=== PATIENT | male | born 1960 | race African-American/Black ===

== ENCOUNTER 2022-11-08 21:32 | Emergency (ER) | payer MEDICAID, OTHER ==
[~2022-11-08] VITALS: Ht 177.8 cm; Wt 72.6 kg
--- NOTE | 2022-11-08 21:40 | NUR ---
[id number] FOR [facility] TRIP AND FALL. +ETOH +HT UNKNOWN KO UNWITNESSED. PATIENT IN BED 13 ON MONITOR AND POX, AWAITING MD MC. PATIENT DENIES ANY DISCOMFORT OR SOB.
--- NOTE | 2022-11-08 22:41 | NUR ---
PATIENT REFUSING TO DO CT CERVICAL SPINE WO CONTRAST. EXPLAINED THE SEVERITY AND IMPORTANCE OF GETTING THIS PROCEDURE, PATIENT STILL REFUSES TO MOVE FOWARD. MADE AWARE.
--- NOTE | 2022-11-08 23:29 | NUR ---
AWAITING FOR FAMILY TO PICKUP PT FOR DC. ETA 1 HR.
--- NOTE | 2022-11-09 00:58 | NUR ---
Patient discharged to home in stable condition. Written and verbal after care instructions given. Patient verbalizes understanding of instruction. PT ambulatory with a steady gait
--- NOTE | 2022-11-09 00:59 | NUR ---
PT WAS PICKED UP BY HIS SON
[2022-11-09 01:57] VITALS: BP 139/87
== END 2022-11-09 01:57 | disposition home or self-care (01) ==
LOC: ER 21:35
DX: S09.8XXA Other specified injuries of head, initial encounter (principal); F10.129 Alcohol abuse with intoxication, unspecified; W19.XXXA Unspecified fall, initial encounter; Y90.9 Presence of alcohol in blood, level not specified; Y93.89 Activity, other specified; Y92.89 Other specified places as the place of occurrence of the external cause; Y99.8 Other external cause status
CPT/HCPCS: 70450-TC

== ENCOUNTER 2022-11-09 08:53 | Emergency (ER) | payer MEDICAID ==
[~2022-11-09] VITALS: Ht 180.3 cm; Wt 88.5 kg
--- NOTE | 2022-11-09 09:02 | NUR ---
[address] PT STATES "EVERYONE IS OUT TO GET ME" DENIES SI/HI. DENIES DRUG USE OR ALCOHOL CONSUMPTION. PT IS ALERT AND ORIENTED TO NAME AND PLACE. BREATHING EVEN AND UNLABORED. AWAITING MD ORDERS.
--- NOTE | 2022-11-09 09:26 | NUR ---
URINE COLLECTED AND SENT TO LAB.
[2022-11-09] MEDS ORDERED: LORAZEPAM INJ 2 MG/ML VIAL ONE ×3 (09:51→16:12)
[2022-11-09] MEDS ORDERED: IV NS 0.9% 1,000 ML BAG IV ONE (10:00)
[2022-11-09] MEDS ORDERED: LORAZEPAM INJ 2 MG/ML VIAL IV ONE ×3 (10:00→15:30)
--- NOTE | 2022-11-09 10:03 | NUR ---
ESTABLISHED IV ACCESS 18G RIGHT AC. BLOOD DRAWN AND SENT TO LAB. NS FLUIDS RUNNING.
--- NOTE | 2022-11-09 10:09 | NUR ---
VERONIKA IS [facility] [phone]
[2022-11-09 10:16] LABS: BASOPHILS # (AUTO) 0.1 K/uL (0.0-0.2); BASOPHILS % (AUTO) 0.6 % (0.0-2.0); EOSINOPHILS % (AUTO) 0.2 % (0.0-6.0); HEMATOCRIT 47 % (39-51); HEMOGLOBIN 15.2 g/dL (13.5-17.5); LYMPHOCYTES % (AUTO) 16.4 % (20.0-44.0); MEAN CORPUSCULAR HGB CONC 33 g/dl (31.0-36.0); MEAN CORPUSCULAR VOLUME 101 fL (80-96); MONOCYTES # (AUTO) 2.2 K/uL (0.1-1.30); MONOCYTES % (AUTO) 18.4 % (2.0-12.0); NEUTROPHILS # (AUTO) 7.7 K/uL (1.8-8.9); NEUTROPHILS % (AUTO) 64.4 % (43.0-81.0); PLATELET COUNT (AUTO) 243 K/uL (150-450); RED BLOOD CELL COUNT(AUTO) 4.59 MIL/uL (4.5-6.0)
[2022-11-09 10:26] LABS: CALCIUM, SERUM 9.8 mg/dL (8.5-10.1); CARBON DIOXIDE 27 mmol/L (21-32); CHLORIDE 98 mmol/L (98-107); CREATININE 1.2 mg/dL (0.6-1.3); GLUCOSE 129 mg/dL (74-106); POTASSIUM 3.6 mmol/L (3.5-5.1); SODIUM SERUM 137 mmol/L (136-145); UREA NITROGEN, BLOOD 9 mg/dL (7-18)
--- NOTE | 2022-11-09 10:36 | NUR ---
TROPONIN 205 PER LAB. MADE AWARE.
--- NOTE | 2022-11-09 10:42 | NUR ---
COVID SWAB COLLECTED AND SENT TO LAB
--- NOTE | 2022-11-09 11:03 | NUR ---
MOVE SHEET SUBMITTED.
--- NOTE | 2022-11-09 11:30 | NUR ---
DR. SULLIVAN: [phone]
--- NOTE | 2022-11-09 11:33 | NUR ---
DR. POSEY ON PHONE WITH DR. SULLIVAN FOR PEER TO PEER
--- NOTE | 2022-11-09 13:08 | NUR ---
REGI FROM [facility] STATED THAT PT IS GOING TO GO TO THEIR ER. CALL FOR REPORT TO [phone]. CHARGE NURSE IS JESSICA.
--- NOTE | 2022-11-09 13:10 | NUR ---
REGI ASKED FOR A CALL BACK WITH ETA [phone]
--- NOTE | 2022-11-09 13:26 | NUR ---
[facility] CALLED FOR TRANSPORT TO [facility] ER ETA 30 MINS PER [place].
[2022-11-09] MEDS ORDERED: CLONIDINE HCL 0.1 MG TABLET ONE (13:36)
--- NOTE | 2022-11-09 13:55 | NUR ---
report given to Mala COOL
[2022-11-09] MEDS ORDERED: CLONIDINE HCL 0.1 MG TABLET PO ONE (14:00)
--- NOTE | 2022-11-09 14:16 | NUR ---
NEW ETA FOR [facility] 1830 WITH BETHANY BRUEC.
[2022-11-09 15:16] LABS: EOSINOPHILS % (MANUAL) 1 % (0-4); LYMPHOCYTES % (MANUAL) 22 % (16-48); MONOCYTES % (MANUAL) 13 % (0-11.0); NEUTROPHILS % (MANUAL) 60 (42-76); REACTIVE LYMPHOCYTES 4 % (0-0)
[2022-11-09] MEDS ORDERED: IV NS 0.9% 1,000 ML IV ONE (15:30)
[2022-11-09] MEDS ORDERED: CHLORDIAZEPOXIDE HCL 25 MG CAPSULE PO ONE (15:30)
--- NOTE | 2022-11-09 16:05 | NUR ---
BETHANY BRUCE CALLED MAKSIM FRYE 30 MINS.
[2022-11-09] MEDS ORDERED: CHLORDIAZEPOXIDE HCL 25 MG CAPSULE ONE (16:11)
[2022-11-09 16:49] VITALS: BP 167/100
--- NOTE | 2022-11-09 16:51 | NUR ---
patient picked up by private ambulance in no distress, report given to Claudio COOL covering for Mala COOL. All belongings sent with patient.
== END 2022-11-09 16:50 | disposition short-term general hospital (02) ==
LOC: ER 08:54
DX: I21.4 Non-ST elevation (NSTEMI) myocardial infarction (principal); R09.89 Other specified symptoms and signs involving the circulatory and respiratory systems; F10.139 Alcohol abuse with withdrawal, unspecified; E83.42 Hypomagnesemia; Z20.822 Contact with and (suspected) exposure to COVID-19; Y90.9 Presence of alcohol in blood, level not specified
CPT/HCPCS: 99291; 96374; 96361; 87426; 93005; 71045; 96376; 85025; 80048; 83735; 36415; 84484 ×2; 87081; 83880; 85007; J2060 ×3; J7030; C9803